=== PATIENT | female | born 1980 | race Caucasian/White ===

== ENCOUNTER 2022-10-27 10:30 | Outpatient (RCR) | payer OTHER, BC, SELFPAY ==
[2022-09-23 10:30] VITALS: BP_SYST 75
--- NOTE | 2022-09-23 11:27 | PTOPEVAL1 ---
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, moving bricks, shoulder popped and pain onset; has not gotten any better since; continues to work, with restriction of no lifting with L arm; work at [employer], health care legal assistant, do some physical lifting and work; Reported Pain Level Pain Score Self Report Additional Pain Score Comments pain range of 2-9/10; L shoulder-pointed to anterior and lateral humerus, into elbow and at worst, into hand with fingers- 3&4 hurting and have to shake hand; pain intensifies then eases off; increase pain with shoulder abduction and IR motions, quick motions; decrease pain with rest, take ibuprofen PRN; have not used heat, did try ice at beginning of injury, but not really help; shoulder pain awakens her 5x/night, cannot lie on L side; sleep with L hand in pajama pants pocket; hurts when driving; Assessment PT Clinical Summary Ceferino has the diagnosis of L bicep tendonitis. She reports onset with lifting at work. She is working now with the restriction of no lifting with L arm. Reports decreased sleeping, driving and use of L arm due to pain. Radicular pain to L hand. With the evaluation, she has decreased ROM and strength of L shoulder, with all motions of shoulder increase pain, onset of pain over 80' lift; there is tenderness over bicep insert/ anterior shoulder and mid deltoid. Skilled PT services are indicated for modalities to decrease pain, therapeutic exercises to increase L shoulder ROM and strength, with progression of activity as tolerated, and education for home exercises and posture correction. Plan of Care Interventions Electrical Stimulation,Hot Pack/Cold Pack,Manual Therapy,Neuro Re-education,Patient/Caregiver Education,Therapeutic Activities,Therapeutic Exercise,Ultrasound,Other Other Interventions taping PT Services Indicated Yes Treatment Frequency and 2x/wk for 5 weeks Duration These treatments will address the objective and functional deficits as defined above. The patient will be advanced safely and appro
[2022-10-27 10:35] VITALS: BP_SYST 75
--- NOTE | 2022-10-27 11:17 | PTOPPROG ---
Assessment and note entered by Maddy Ruiz, PT Evaluation Information Assessment Status Progress Diagnosis L bicep tendonitis Onset Jul 25, 2022 Subjective Information Ceferino reports: shoulder is about the same, not much better; going to see dr on to follow up after therapy; have been doing the home exercises; pain range 2-10/10; pain over mid-lateral humerus/ deltoid; arm and hand are weak; dull, ache constant, sometimes searing pain, like knife in the arm; at worst, into elbow, forearm and hand; increase pain with quick motion, lifting, use of arm; decreased with rest; is not taking any pain meds; heat/ice not really help; awaken from sleep 3-4x/night; Assessment PT Clinical Summary Ceferino has received 10 PT sessions. Compared to the initial evaluation: pain at low level is the same 2/10 and worst rating increased from 9 to 10/10; sleeping tolerance is slight improved; L shoulder active and active assisted ROM of flexion, abduction, IR and ER are the same or within 5'; continues to have pain with all shoulder motions, with IR and abduction motions most painful. And continues to have radicular pain into fingers. She has been educated on home exercises and posture correction. The goals were partially achieved. Ceferino is to follow up with dr. RANDALL PT and if PT is to continue, she will need a new order. Plan of Care PT Services Indicated Yes Treatment Frequency and HOLD PT-- to have follow up dr appointment; if PT Duration is to continue, she will need a new script These treatments will address the objective and functional deficits as defined above. The patient will be advanced safely and appropriately in order for the patient to progress towards his/her prior level of function. Additional exercises will be introduced and as well as a comprehensive home exercise program upon discharge, if needed, ?to ensure carryover of functional gains achieved in the clinic. This treatment plan has been reviewed and agreement upon by the patient.
--- NOTE | 2022-11-21 10:44 | PCPTNOTE ---
PHYSICAL THERAPY DISCHARGE 11-21-22 Attending Provider: Cray Diehl PA-C Patient:Ceferino Lazo Date of :1980 Ceferino has not returned for any further treatments since the reevaluation on 10/27/2022, therefore she will be discharged at this time. Refer to that report for her status at the last session. Thank you for referring Ceferino to [facility].
== END 2022-11-22 09:04 | disposition home or self-care (01) ==
LOC: ANHPT 10:30
PROVIDERS: PCP Family Medicine; Visit Provider Physician Assistant
DX: M75.22 Bicipital tendinitis, left shoulder (principal)
CPT/HCPCS: 97014; 97110; 97112; 97140; 97161; 97530; G0283

== ENCOUNTER 2022-11-29 15:25 | Outpatient (CLI) | payer OTHER, SELFPAY ==
--- NOTE | ~2022-11-29 | MR_ITS ---
EXAMINATION: MR shoulder LT wo con DATE: 11/29/2022 16:34 INDICATION: Left shoulder injury TECHNIQUE: Magnetic resonance imaging (MRI) of the left shoulder was performed without intravenous co ntrast. Sequences included axial PD-weighted FS FSE, coronal oblique PD-weighted FS FSE, coronal obli que T2-weighted FS FSE, sagittal PD-weighted FS FSE, and sagittal T1-weighted SE. COMPARISON: None. FINDINGS: Coracoacromial arch: The acromion undersurface is curved in morphology (type II). The coracoacromial ligament is normal. M inimal acromioclavicular osteoarthritis. Rotator cuff: Focal mild tendinopathy at the conjoined portion of the supraspinatus and infraspinatus tendon withou t discrete tear. The teres minor and subscapularis tendons are normal. Normal rotator cuff muscle bul k and signal. Biceps tendon, glenoid labrum and glenohumeral cartilage: Long head of the biceps tendon is normal. Amorphous increased signal at the posterior superior glenoi d labrum consistent with degenerative tear. Associated mild subarticular cystic change along the post erior superior rim of the glenoid. Mild partial-thickness cartilage loss with smooth chondral surface along the posterior superior glenoid at the inferior and superior aspect of the humeral head. Fluid: Physiologic amount of fluid in the glenohumeral joint and biceps tendon sheath. No loose osteochondr al bodies. Mild increased fluid signal in the subacromial/subdeltoid bursa consistent with minimal bu rsitis. Bones: Bone alignment is normal. No fracture or pathologic marrow replacing process. There is thickened mild ly T2 hypointense and T1 isointense soft tissue replacing the normal T1 hyperintense fat signal at th e rotator cuff interval which could relate either posttraumatic partial tear of the biceps sea sli ng or due to adhesive capsulitis, the latter which is a clinical diagnosis. IMPRESSION: 1. Degenerative SLAP tear at the posterior superior glenoid labrum likely chronic given the mild unde rlying subarticular cystlike changes at the glenoid. 2. Focal mild tendinopathy without discrete tear at the conjoined portion of the supraspinatus and in fraspinatus tendons. No rotator cuff tear. 3. Thickened soft tissue at the rotator cuff interval which could be related to either partial tear o f the biceps sea sling or adhesive capsulitis. Reviewed, dictated and finalized at location A. ICENOW ADMINISTRATOR DEVELOPER IMPRESSION: 1. Degenerative SLAP tear at the posterior superior glenoid labrum likely chron ic given the mild underlying subarticular cystlike changes at the glenoid. 2. Focal mild tendinopathy without discrete tear at the conjoined portion of th e supraspinatus and infraspinatus tendons. No rotator cuff tear. 3. Thickened soft tissue at the rotator cuff interval which could be related to either partial tear of the biceps sea sling or adhesive capsulitis.
== END 2022-11-29 15:26 | disposition home or self-care (01) ==
PROVIDERS: PCP Family Medicine; Visit Provider Family Medicine
DX: M75.22 Bicipital tendinitis, left shoulder (principal); S43.432A Superior glenoid labrum lesion of left shoulder, initial encounter; X58.XXXA Exposure to other specified factors, initial encounter
CPT/HCPCS: 73221

== ENCOUNTER 2023-02-22 15:00 | Emergency (ER) | payer BC, SELFPAY ==
--- NOTE | ~2023-02-22 | CT_ITS ---
EXAMINATION: CT brain wo con DATE: 02/22/2023 15:47 INDICATION: Headache. TECHNIQUE: Computed tomography (CT) of the head was performed without intravenous contrast. The mA wa s adjusted according to patient size. Iterative reconstruction technique was employed. The dose-lengt h product was 605.33 mGy-cm. COMPARISON: None FINDINGS: There is no intracranial hemorrhage, acute infarction, or abnormal intracranial mass lesion . The ventricles are normal in size. The orbits are normal. There is mucosal thickening in the parana samantha sinuses. The mastoid air cells are normal. IMPRESSION: 1. Normal brain. Reviewed, dictated and finalized at location A. IMPRESSION: 1. Normal brain.
[2023-02-22 15:03] VITALS: BP 127/61; PULSE 67; RESP 18; TEMP 36.6; O2SAT 100
--- NOTE | 2023-02-22 16:01 | ED.HA ---
HPI - Headache General Chief Complaint: Headache Stated Complaint: headache Time Seen by Provider: 02/22/23 15:11 Source: patient Mode of arrival: ambulatory Limitations: no limitations History of Present Illness HPI Narrative: 42-year-old female presents today with complaints of a headache behind her right eye. States started about 11:00. States she did not think much of it until she started getting nauseated. Patient denies history of migraines. Does endorse a history of a headache behind the right eye in the past but this is not something that is normal for her. Patient states the nausea is new. She denies any vision changes or other neurological changes. Patient does endorse that all she has had today was coffee and a little bit of water. Patient states she has not eaten anything. MD elicited complaint: headache Onset description: gradually Location: other (Behind right eye.) Quality & Timing: throbbing and dull Exacerbating factors: movement of head/neck, sitting/standing, light and noise Relieving factors: nothing Associated symptoms: nausea and lightheadedness Treatments prior to arrival: none Related Data Home Medications Medication Instructions Recorded Confirmed No Home Medications 11/03/22 12/29/22 Allergies Allergy/AdvReac Type Severity Reaction Status Date / Time No Known Allergies Allergy Verified 02/22/23 15:12 Review of Systems Review of Systems: All systems reviewed & are unremarkable except as noted in HPI and below Constitutional: Constitutional: Reports no additional constitutional complaints, Denies chills and Denies fever(s) Eyes: Eyes: Reports no additional eye complaints, Denies change in vision and Reports photophobia (Questionable) ENT: Reports system reviewed and no additional complaints, except as documented Cardiovascular: Cardiovascular: Reports no additional cardiovascular complaints Respiratory: Respiratory: Reports no additional respiratory complaints Neurologic: Reports system reviewed and no additional complaints, except as documented [facility] Past Medical History Medical History (Updated 02/22/23 @ 17:01 by Sera Ellsworth APRN) Acute non-recurrent maxillary sinusitis Obesity (BMI 35.0-39.9 without comorbidity) Family History Family History Father Family history of lung cancer Mother Family history of thyroid disease Diabetes mellitus Hypertension Cerebrovascular accident Sibling Family history of thyroid disease Other Family history of type 1 diabetes mellitus Social History Social History (Reviewed 02/22/23 @ 16:10 by TERRELL Holland Social History: Single Smoking status: Former smoker Second hand tobacco smoke exposure: No Smoking end date: 10/23/14 Alcohol intake: never Substance use: never Substance use type: does not use Living arrangements: with family Occupation/Education: occupation Gender identity (if verbalized by the patient): Female Sexual Orientation (if Verbalized by the Patient): Straight or Heterosexual Exam Narrative: GENERAL: Well-appearing, well-nourished, and in no acute distress. HEAD: Normocephalic, atraumatic. EYES: PERRLA and EOMI. ENT: Nares clear, no rhinorrhea or epistaxis. Mucous membranes moist. Oropharynx without tonsillar hypertrophy exudate or other lesions. Bilateral TMs pearly camacho nonbulging NECK: Supple. No adenopathy or masses. CHEST: Clear to auscultation. No respiratory distress. No wheezes rales or rhonchi HEART: Regular rate and rhythm. No murmur heard. Normal peripheral pulses. ABDOMEN: Soft, nontender, nondistended, normal active bowel sounds. EXTREMITIES: Normal range of motion. No edema. SKIN: Warm, dry, no rash. NEURO: No focal deficits. Alert and oriented x3. PSYCH: Normal mood and affect. Course Course Emergency Course: CT of the head reviewed with patient. Patient without any pain after IV fl
[2023-02-22] MEDS: SODIUM CHLORIDE 0.9% IV 1,000 ML 999 ML IV CONT (16:13)
[2023-02-22] MEDS: METOCLOPRAMIDE HCL INJ 10 MG/2 ML VIAL IV PUSH (16:13)
[2023-02-22] MEDS: KETOROLAC 30 MG/ML VIAL (*BKC) IV PUSH (16:13)
[2023-02-22] MEDS: diphenhydrAMINE HCl INJ 50 MG/ML VIAL 25 MG IV PUSH (16:13)
== END 2023-02-22 17:18 | disposition home or self-care (01) ==
PROVIDERS: Emergency Provider Nurse Practitioner Family; PCP Family Medicine
DX: R51.9 Headache, unspecified (principal); E66.9 Obesity, unspecified; Z87.891 Personal history of nicotine dependence
CPT/HCPCS: 70450; 96361; 96374; 96375; 99284; J1200; J1885; J2765; J7030

== ENCOUNTER 2023-09-01 11:23 | Emergency (ER) | payer OTHER, SELFPAY ==
--- NOTE | ~2023-09-01 | XR_ITS ---
EXAMINATION:XR cervical spine 4-5V DATE: 09/01/2023 12:49 INDICATION: Neck pain TECHNIQUE: AP, lateral, bilateral oblique, and odontoid views of the cervical spine are provided. COMPARISON: None FINDINGS: There are 2 mm of anterolisthesis of C3 on C4. The odontoid process is intact. No fracture is identified. There is mild loss of intervertebral disc space height at C5-6. The vertebral body hei ghts are normal. Prevertebral soft tissues are normal. IMPRESSION: 1. Mild cervical spondylosis without acute findings. Reviewed, dictated and finalized at location B. AL MACHINIST
--- NOTE | ~2023-09-01 | XR_ITS ---
EXAMINATION: XR thoracic spine 3V DATE: 09/01/2023 12:50 INDICATION: Thoracic back and neck pain TECHNIQUE: AP, lateral and lateral swimmer's views of the thoracic spine were obtained. COMPARISON: None. FINDINGS: Bone alignment is normal. There is no fracture. The vertebral body heights and intervertebr al disc spaces are normal. IMPRESSION: 1. No acute osseous abnormality. Reviewed, dictated and finalized at location B. EN CONSULTANT
[2023-09-01 11:51] VITALS: BP 137/85; PULSE 61; RESP 18; TEMP 36.2; O2SAT 99
--- NOTE | 2023-09-01 12:22 | ED.GENADULT ---
HPI - General Adult General Chief complaint: Neck Pain/Injury Stated complaint: back,neck,lt shoulder pain Time Seen by Provider: 09/01/23 12:22 Source: patient, RN notes reviewed and old records reviewed Mode of arrival: ambulatory Limitations: no limitations History of Present Illness HPI narrative: 43-year-old female presents to the [facility] with upper back, lower neck, left shoulder pain with movement that started on Monday, 3 days ago. Patient denies any injury states that she has been using warm moist heat, heating pad as well as icy hot with no improvement. Has an appointment with Dr. Green on Monday. Onset (ago): day(s) (3) Related Data Allergies Allergy/AdvReac Type Severity Reaction Status Date / Time No Known Allergies Allergy Verified 09/01/23 12:19 Review of Systems Review of Systems: All systems reviewed & are unremarkable except as noted in HPI and below Constitutional: Constitutional: Reports no additional constitutional complaints Eyes: Eyes: Reports no additional eye complaints ENT: Reports system reviewed and no additional complaints, except as documented Cardiovascular: Cardiovascular: Reports no additional cardiovascular complaints, Denies chest pain and Denies dyspnea Respiratory: Respiratory: Reports no additional respiratory complaints, Denies chest congestion, Denies cough and Denies dyspnea Gastrointestinal: Gastrointestinal: Reports no additional gastrointestinal complaints, Denies abdominal pain, Denies nausea and Denies vomiting Musculoskeletal: Musculoskeletal: Reports as per HPI Integumentary/Breasts: Skin/Breast: Reports system reviewed and no additional complaints, except as docu Neurologic: Reports system reviewed and no additional complaints, except as documented Psychiatric: Psychiatric: Reports no additional psychiatric complaints Allergic/Immunologic: Allergic/Immunologic: Reports no additional allergic/immunologic complaints [facility] Past Medical History Medical History Acute non-recurrent maxillary sinusitis Obesity (BMI 35.0-39.9 without comorbidity) Surgical History Surgical History Tubal ligation status 2005 Family History Family History Father Family history of lung cancer Mother Family history of thyroid disease Diabetes mellitus Hypertension Cerebrovascular accident Sibling Family history of thyroid disease Other Family history of type 1 diabetes mellitus Social History Social History Social History: Single Smoking status: Former smoker Second hand tobacco smoke exposure: No Smoking end date: 10/23/14 Alcohol intake: current Alcohol use details: rarely Substance use: never Substance use type: does not use Lack of Transportation: No Lack of Food: Never True Current Housing: I Have Housing Concerned About Future Housing: No Difficulty Paying Gas/Electric Bills: No Difficulty Paying for Meds: No Currently Unemployed: No Education: High School Diploma/GED Difficulty w/ Childcare or Family Care: No Living arrangements: with family Occupation/Education: occupation Additional occupation/education comments: [employer] Gender identity (if verbalized by the patient): Female Sexual Orientation (if Verbalized by the Patient): Straight or Heterosexual Comments At the time of my signature, I reviewed and agree with the nursing past medical, surgical, social, and family history. There is no relevant family history pertinent to the patient complaint. Exam Const: General: cooperative, healthy appearing, comfortable, no acute distress, well developed, alert and well nourished Nutritional Appearance: well nourished and obese Orientation/consciousness: patient oriented x3 Limitations: no limitations
== END 2023-09-01 13:32 | disposition home or self-care (01) ==
PROVIDERS: Emergency Provider Nurse Practitioner; PCP Family Medicine
DX: S16.1XXA Strain of muscle, fascia and tendon at neck level, initial encounter (principal); X58.XXXA Exposure to other specified factors, initial encounter; Z87.891 Personal history of nicotine dependence; E66.01 Morbid (severe) obesity due to excess calories; Z68.41 Body mass index [BMI] 40.0-44.9, adult
CPT/HCPCS: 72050; 72072; 99213; G0463

== ENCOUNTER 2024-02-22 08:45 | Outpatient (CLI) | payer OTHER, SELFPAY ==
--- NOTE | 2024-03-05 17:40 | WPDHOMESLEEP ---
Sleep Study - Home Unattended Date of Study: 02/22/24 Ordering Provider: Fly Lopez APRN Interpreting Provider: Sherry Coe, DO Home Sleep Study Type: Watch PAT Height: 1.75 m Weight: 142.882 kg Body Mass Index: 46.5 Neck Circumference (inches): 15.25 [place]: 14 Reason for Sleep Study Snoring, daytime hypersomnia Sleep History The patient is a 43-year-old female with asthma and morbid obesity that had a sleep study ordered by the pulmonary group for evaluation of sleep apnea. The patient occasionally awakens from sleep short of breath. She constantly awakens at night with heartburn, belching or cough. She constantly snores loudly enough that others complain. She occasionally has trouble sleeping when she has a cold. She occasionally wakes up gasping for air throughout the night. She frequently has breathing problems at night observed by herself or others. She frequently sweats excessively at night. She denies having heart palpitations or irregular heartbeats during the night. She occasionally falls asleep during the day but never while driving. She denies sleep paralysis, cataplexy and hypnagogic / hypnopompic hallucinations. She occasionally has trouble at school or work due to sleepiness. She denies feeling afraid of going to sleep. She denies having nightmares. She denies remembering her dreams. She constantly has thoughts racing through her mind. She denies feeling sad, depressed or anxious. She rarely has muscular tension. She denies noticing parts of her body jerk. She occasionally kicks during the night. She denies having crawling and aching feelings in her legs but occasionally has leg pain during the night. She constantly grinds her teeth during sleep but never awakens with morning jaw pain. She denies being bothered by pain during the day but occasionally is awakened by pain during the night. She frequently wakes up feeling stiff in the morning. She denies waking up with sore or achy muscles. She frequently wakes up with pain in the neck, spine and other joints. She goes to bed between 10:30 to 11:30 p.m. on both weekdays and weekends. It takes her at least 1 hour to fall asleep. She wakes up twice throughout the night to adjust position is able to fall back asleep within a few minutes. She wakes up at 5:30 a.m. on both weekdays and weekends. She typically gets 6 hours of sleep per night. She does not stay in bed after waking up in the morning. She currently lives with her adult child. She denies consuming any caffeinated beverages within 2 hours of bedtime. She denies engaging in physical exercise before bedtime she will watch television before falling asleep she denies taking naps in afternoon or the evening. She quit smoking cigarettes in 2014. She denies consuming caffeinated beverages throughout the day. She denies alcohol and recreational drug use. [facility] Past Medical History Medical History Acute non-recurrent maxillary sinusitis Obesity (BMI 35.0-39.9 without comorbidity) Surgical History Surgical History Tubal ligation status 2005 Family History Family History Father Family history of lung cancer Mother Family history of thyroid disease Diabetes mellitus Hypertension Cerebrovascular accident Sibling Family history of thyroid disease Other Family history of type 1 diabetes mellitus Social History Social History Social History: Single Smoking status: Former smoker Second hand tobacco smoke exposure: No Smoking end date: 10/23/14 Alcohol intake: current Alcohol use details: rarely Substance use: never Substance use type: does not use Do You Feel Safe in your Home?: Yes Lack of Transportation: No Lack of Food: Ne
[2024-03-05 17:47] VITALS: BMI 46.5
== END 2024-02-23 07:30 | disposition home or self-care (01) ==
LOC: ANHCSM 08:45
PROVIDERS: PCP Family Medicine; Visit Provider Nurse Practitioner Family
DX: G47.10 Hypersomnia, unspecified (principal); G47.33 Obstructive sleep apnea (adult) (pediatric)
CPT/HCPCS: 95800

== ENCOUNTER 2024-02-27 08:09 | Outpatient (CLI) | payer OTHER, SELFPAY ==
--- NOTE | 2024-02-27 13:18 | WPDPFTINT ---
PFT Procedure Performed PFT Procedure Performed Spirometry with Pre/Post Bronchodilator Plethysmography (Lung Vol) Diffusing Cap (DLCO) Flow Vol Loop PFT Interpretation Lung volumes were measured with the body plethysmography method. The diminished expiratory reserve volume is due to obesity. The remaining lung volumes are unremarkable. Spirometry showed diminished expiratory flow rates and a normal FEV1 to FVC ratio 73%. Following administration of a bronchodilator there was no significant increase in the expiratory flow rates. Lung diffusion capacity is within the normal range at 75% predicted. The flow-volume loop is unremarkable. Impression: Nonspecific pattern. Lung diffusion capacity within the normal range.
== END 2024-02-27 08:10 | disposition home or self-care (01) ==
LOC: ANHPFT 08:09
PROVIDERS: PCP Family Medicine; Visit Provider Nurse Practitioner Family
DX: J45.909 Unspecified asthma, uncomplicated (principal)
CPT/HCPCS: 94060; 94726; 94729